=== PATIENT | female | born 1990 | race Caucasian/White ===

== ENCOUNTER 2019-01-18 22:41 | Emergency (ER) | payer OTHER ==
[~2019-01-18] VITALS: Ht 165.1 cm; Wt 86.2 kg
[2019-01-18] MEDS ORDERED: [UNRECOGNIZED DRUG - REMARK] (23:00)
[2019-01-18] MEDS ORDERED: [UNRECOGNIZED DRUG - REMARK] (23:00)
[2019-01-18] MEDS ORDERED: [UNRECOGNIZED DRUG - REMARK] (23:00)
--- NOTE | 2019-01-18 23:00 | NUR ---
Pt. BIB by [facility] employee for generalized tingling x 3 hours, Pt. is crying and states that she smoked meth and heroin yesterday, A/Ox4, RR even and unlabored, speaks in clear and complete sentences,
[2019-01-18] MEDS ORDERED: LORAZEPAM 2 MG/1 ML VIAL ONE (23:03)
[2019-01-18] MEDS: LORAZEPAM 2 MG/1 ML VIAL IM ONE (23:05)
--- NOTE | 2019-01-18 23:06 | NUR ---
Phleb. tech. at bedside for blood draw,
--- NOTE | 2019-01-18 23:13 | NUR ---
Rad. tech. at bedside for CXR
[2019-01-18 23:15] LABS: BASOPHILS # (AUTO) 0.1 K/uL (0.0-8.0); BASOPHILS % (AUTO) 0.7 % (0.0-2.0); EOSINOPHILS # (AUTO) 0.1 K/uL (0.0-0.7); EOSINOPHILS % (AUTO) 0.8 % (0.0-7.0); HEMATOCRIT 38.5 % (31.2-41.9); HEMOGLOBIN 13.1 g/dL (10.9-14.3); LYMPHOCYTES # (AUTO) 2.8 K/uL (20.0-40.0); LYMPHOCYTES % (AUTO) 28.1 % (20.5-51.5); MEAN CORPUSCULAR HEMOGLOBIN 32.5 uug (24.7-32.8); MEAN CORPUSCULAR HGB CONC 34 g/dL (32.3-35.6); MEAN CORPUSCULAR VOLUME 95.6 fL (75.5-95.3); MONOCYTES # (AUTO) 0.7 K/uL (2.0-10.0); MONOCYTES % (AUTO) 7.3 % (0.0-11.0); NEUTROPHILS # (AUTO) 6.4 K/uL (1.8-8.9); NEUTROPHILS % (AUTO) 63.1 % (38.5-71.5); PLATELET COUNT (AUTO) 301 K/uL (179-408); RED BLOOD CELL COUNT(AUTO) 4.03 MIL/uL (3.63-4.92); WHITE BLOOD COUNT (AUTO) 10.1 K/uL (3.8-11.8)
[2019-01-18 23:24] LABS: CREATININE 0.8 mg/dL (0.6-1.3)
[2019-01-18 23:29] LABS: BILIRUBIN,DIRECT 0.1 mg/dL (0.0-0.2); BILIRUBIN,TOTAL 0.4 mg/dL (0.2-1.0); TOTAL PROTEIN, SERUM 7.9 g/dL (6.4-8.2)
--- NOTE | 2019-01-19 00:25 | NUR ---
Pt. resting in bed w/ eyes closed, monitored from nurse station, bed in low position, all needs met,
--- NOTE | 2019-01-19 01:23 | NUR ---
Pt. resting in bed w/ eyes closed, bed in low position, VSS, monitoring from nurse station, all needs met,
--- NOTE | 2019-01-19 02:15 | NUR ---
Pt. up to use restroom, walks w/ steady gait, says she feels tired and needs to sleep,
--- NOTE | 2019-01-19 04:05 | NUR ---
Pt. resting in bed w/ eyes closed, NAD
--- NOTE | 2019-01-19 04:29 | NUR ---
Called [facility] and spoke w/ Loyd who will come p/u for transport back to facility,
--- NOTE | 2019-01-19 04:43 | NUR ---
Patient discharged to home in stable conditon. Written and verbal after care instructions given. Patient verbalizes understanding of instructions. Pt. d/c per MD order, d/c papers signed, all belongings w/ pt., ID band removed, ambulated off unit w/ steady gait accompanied by [facility] [email or web address]
== END 2019-01-19 05:00 | disposition home or self-care (01) ==
LOC: ER 22:41
DX: F41.0 Panic disorder [episodic paroxysmal anxiety] (principal); F15.10 Other stimulant abuse, uncomplicated; F11.10 Opioid abuse, uncomplicated; Z88.0 Allergy status to penicillin; Z88.1 Allergy status to other antibiotic agents; Z79.899 Other long term (current) drug therapy
CPT/HCPCS: 36415; 70030-TC; 71045; 85025; 93005; A4663; J2060